=== PATIENT | female | born 1960 | race American Indian/Alaskan Native ===

== ENCOUNTER 2018-02-27 18:51 | Emergency (ER) | payer OTHER ==
[2018-02-27 20:39] VITALS: BP 137/81
[2018-02-27] MEDS ORDERED: REGLAN IV ONE (23:09)
[2018-02-27] MEDS ORDERED: BENADRYL IV ONE (23:09)
[2018-02-27] MEDS ORDERED: TORADOL IV ONE (23:09)
--- NOTE | 2018-02-27 23:14 | Emergency Department Report ---
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 Patient reports that her headache started when she started taking the tramadol. 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 Patient denies any blurred vision or vomiting. Patient does still complain of her left leg that she was seen here on 02/24/2018. Patient reports that she's had a decreased appetite mouth is been dry. Timing/Duration: other (3 days) Quality: moderate, throbbing Head Injury Location: frontal Recent Head Trauma: no recent headache/trauma Modifying Factors: improves with: medication (Ultram gave her headache) Allergies/Adverse Reactions: Allergies No Known Allergies Allergy (Unverified 08/06/15 21:48) Home Medications: Ambulatory Orders Aspirin [Aspirin BABY CHEW TAB] 81 mg PO QDAY 08/07/15 Esomeprazole Magnesium [NexIUM] 40 mg PO QDAY 08/07/15 Losartan/Hydrochlorothiazide [Hyzaar 50-12.5 TAB] 1 tab PO QDAY 08/07/15 Ondansetron [Zofran Odt] 4 mg PO Q8HR PRN #14 tab.rapdis 02/24/18 traMADol [Ultram 50 MG tab] 50 mg PO Q4HR PRN #14 tablet 02/24/18 Ibuprofen [Motrin 800 MG tab] 800 mg PO Q8HR PRN #30 tablet 02/28/18 ED Review of Systems 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 denies: chills, fever Endocrine: other (decreased appetite) Gastrointestinal: nausea Neurological: headache ED Past Medical Hx - Past Medical History Previous Medical History?: Yes Hx Hypertension: Yes Hx Congestive Heart Failure: No Hx Diabetes: Yes (Pre-diabetes) Hx GERD: Yes Hx Asthma: No Hx COPD: No - Surgical History Additional Surgical History: Hiatal Hernia Jun 2017 - Social History Smoking Status: Never Smoker - Medications Home Medications: Home Medications Medication Instructions Recorded Confirmed Last Taken Type Aspirin [Aspirin BABY CHEW TAB] 81 mg PO QDAY 08/07/15 08/07/15 1 Day Ago History ~08/06/15 Esomeprazole Magnesium [NexIUM] 40 mg PO QDAY 08/07/15 08/07/15 1 Day Ago History ~08/06/15 Losartan/Hydrochlorothiazide 1 tab PO QDAY 08/07/15 08/07/15 1 Day Ago History [Hyzaar 50-12.5 TAB] ~08/06/15 Ondansetron [Zofran Odt] 4 mg PO Q8HR PRN #14 tab.rapdis 02/24/18 Unknown Rx traMADol [Ultram 50 MG tab] 50 mg PO Q4HR PRN #14 tablet 02/24/18 Unknown Rx Ibuprofen [Motrin 800 MG tab] 800 mg PO Q8HR PRN #30 tablet 02/28/18 Unknown Rx ED Physical Exam - General Limitations: No Limitations General appearance: alert, in no apparent distress - Head Head exam: Present: atraumatic, normocephalic - Eye Eye exam: Present: normal appearance - ENT ENT exam: Present: mucous membranes moist - Neck Neck exam: Present: normal inspection - Respiratory Respiratory exam: Present: normal lung sounds bilaterally. Absent: respiratory distress - Cardiovascular Cardiovascular Exam: Present: regular rate, normal rhythm. Absent: systolic murmur, diastolic murmur, rubs, gallop - GI/Abdominal GI/Abdominal exam: Present: soft, normal bowel sounds - Extremities Exam Extremities exam: Present: full ROM, tenderness (left) - Back Exam Back exam: Present: normal inspection, full ROM - Neurological Exam Neurological exam: Present: alert, oriented X3 - Expanded Neurological Exam Expanded Speech: Present: fluid speech Cranial nerves: EOM's Intact: Normal, Gag Reflex: Normal, Tongue Deviation: Normal, Nystagmus: Normal, Facial Sensation: Normal, Facial Palsy with Forehead Movement: Normal, Facial Palsy without Forehead Movement: Normal Cerebellar function: Finger to Nose: Normal, Heel to Lai: Normal, Romberg: Normal Upper motor neuron: Adam Neglect: Normal Motor strength exam: RUE: 5, LUE: 5, RLE: 5, LLE: 5 Best Eye Response (Andrew): (4) open spontaneously Best Motor Response (Andrew): (6) obeys commands Best Verbal Response (Andrew): (5) oriented Collins Total: 15 - Psychiatric Psychiatric exam: Present: normal affect, normal mood - Skin Skin exam: Present: warm, dry, intact, normal color. Absent: rash ED Course Vital Signs 02/27/18 02/27/18 20:32 21:25 Temperature 98.8 F 98.8 F Pulse Rate 76 72 Respiratory 18 18 Rate Blood Pressure 137/81 137/81 O2 Sat by Pulse 90 98 Oximetry ED Medical Decision Making - Medical Decision Making Patient has been evaluated by this provider fast track. Patient will be given a IV of Benadryl Toradol and Reglan for headache. Will have patient follow up with her primary care provider if symptoms persist or gets worse. Critical care attestation.: If time is entered above; I have spent that time in minutes in the direct care of this critically ill patient, excluding procedure time. ED Disposition Clinical Impression: Headache Qualifiers: Headache type: unspecified Headache chronicity pattern: acute headache Intractability: intractable Qualified Code(s): R51 - Headache Disposition: DC-01 TO HOME OR SELFCARE Is pt being admited?: No Does the pt Need Aspirin: No Condition: Stable Instructions: Acute Headache (ED) Additional Instructions: Pain medication as needed follow-up to primary care provider symptoms persist or gets worse. Prescriptions: Ibuprofen [Motrin 800 MG tab] 800 mg PO Q8HR PRN #30 tablet PRN Reason: Pain , Severe (7-10) Referrals: PRIMARY CARE, [Primary Care Provider] - 3-[address] [facility] [Provider Group] - 3-5 Days Forms: Work/School Release Form(ED)
== END 2018-02-28 00:30 | disposition home or self-care (01) ==
LOC: ED 18:51
DX: R51 Headache (principal); I10 Essential (primary) hypertension; E11.9 Type 2 diabetes mellitus without complications; K21.9 Gastro-esophageal reflux disease without esophagitis; Z79.899 Other long term (current) drug therapy
CPT/HCPCS: 96374; 96375; 99283; J1200; J1885; J2765